=== PATIENT | male | born 1955 | race Caucasian/White ===

== ENCOUNTER → 2021-05-20 | Outpatient (CLI) | payer OTHER | LOC: CARD 14:30 | PROVIDERS: ATTEND Nurse Practitioner Family | DX: I49.8 Other specified cardiac arrhythmias (principal) | CPT/HCPCS: 93005 ==

== ENCOUNTER → 2021-05-25 | Outpatient (CLI) | payer OTHER | LOC: CARD 14:00 | PROVIDERS: ATTEND Nurse Practitioner Family | DX: I49.8 Other specified cardiac arrhythmias (principal) | CPT/HCPCS: 93005 ==

== ENCOUNTER → 2021-05-26 | Outpatient (CLI) | payer OTHER | LOC: CARD 11:08 | PROVIDERS: ATTEND Nurse Practitioner Family | DX: I49.8 Other specified cardiac arrhythmias (principal) | CPT/HCPCS: 93005 ==

== ENCOUNTER → 2021-06-01 | Outpatient (CLI) | payer OTHER | LOC: CARD 12:30 | PROVIDERS: ATTEND Nurse Practitioner Family | DX: I48.0 Paroxysmal atrial fibrillation (principal) | CPT/HCPCS: 93005 ==